=== PATIENT | male | born 1985 | race Caucasian/White ===

== ENCOUNTER 2021-06-08 03:17 | Emergency (ER) | payer OTHER ==
[2021-06-08 04:45] LABS: HEMOGLOBIN 11.5 gm/dl (14.0-17.5); RED BLOOD COUNT 4.3 M/UL (4.20-5.50); WHITE BLOOD COUNT 6.5 K/UL (4.5-11.0)
[2021-06-08 05:04] LABS: BUN/CREATININE RATIO 17 (0-10)
== END 2021-06-08 09:50 | disposition home or self-care (01) ==
LOC: ER1 03:17
PROVIDERS: Family Medicine
DX: M79.89 Other specified soft tissue disorders (principal); Z90.89 Acquired absence of other organs
CPT/HCPCS: 80053; 82550; 82553; 83690; 84484; 85025; 93970; 99284